=== PATIENT | female | born 1985 | race Caucasian/White ===

== ENCOUNTER 2017-02-04 17:01 | Emergency (ER) ==
[2017-02-04 17:01] VITALS: BMI 28.3
[2017-02-04 17:07] VITALS: BP 130/87; TEMP 97.3
--- NOTE | 2017-02-04 18:03 | ED.PDOC ---
General ED Provider: Dr. DOMINICK CAMPBELL Chief Complaint: Vaginal Discharge/Swelling Stated Complaint: vaginal discharge Time Seen by Physician: 17:00 (seen with LIBBYat all times) Mode of Arrival: Walk-In Information Source: Patient Referred to ED by: Other (pt not interested in HIV OR RPR TESTING SHE WOULD LIKE TO FOLLOW UP WITH HEALTH DEPT) Nursing and Triage Documentation Reviewed and Agree: Yes Complaint Exam - Complaint/Exam Patient Complains of: Reports: Vaginal discharge, Dysuria Onset/Duration: 1 WEEK Symptoms Are: Still present Timing: Intermittent Initial Severity: Mild Current Severity: None Location of Pain: Reports: None Aggravating: Reports: [place] Alleviating: Reports: None Associated Signs and Symptoms: Reports: Vaginal discharge Ectopic Risk Factors: Reports: None Ovarian Torsion Risk Factors: Reports: None Surgical Obstruction Risk Factors: Reports: None RH Status: Unknown Related Surgical History: Reports: None Abdominal Findings: Present: None Differential Diagnoses: UTI Review of Systems - Review Of Systems Constitutional: Reports: No symptoms Eyes: Reports: No symptoms Ears, Nose, Mouth, Throat: Reports: No symptoms Respiratory: Reports: No symptoms Cardiac: Reports: No symptoms GI: Reports: No symptoms : Reports: No symptoms Musculoskeletal: Reports: No symptoms Skin: Reports: No symptoms Neurological: Reports: No symptoms Endocrine: Reports: No symptoms Hematologic/Lymphatic: Reports: No symptoms All Other Systems: Reviewed and Negative Past Medical History - Past Medical History Previously Healthy: Yes Endocrine: Reports: None Cardiovascular: Reports: None Respiratory: Reports: None Hematological: Reports: None Gastrointestinal: Reports: None Genitourinary: Reports: None Neuro/Psych: Reports: None Musculoskeletal: Reports: None Cancer: Reports: None Last Menstrual Period: 2-3 weeks ago - Surgical History General Surgical History: Reports: Unknown - Family History Family History: Reports: Unknown - Social History Smoking Status: Current every day smoker Hx Substance Use: No Alcohol Screening: Heavy Physical Exam - Physical Exam Appearance: Well-appearing, No pain distress, Well-nourished Eyes: FILEMON, EOMI, Conjunctiva clear ENT: Ears normal, Nose normal, Oropharynx normal Respiratory: Airway patent, Breath sounds clear, Breath sounds equal, Respirations nonlabored Cardiovascular: RRR, Pulses normal, No rub, No murmur GI/: Soft, Nontender, No masses, Bowel sounds normal, No Organomegaly Musculoskeletal: Normal strength, ROM intact, No edema, No calf tenderness Skin: Warm, Dry, Normal color Neurological: Sensation intact, Motor intact, Reflexes intact, Cranial nerves intact, Alert, Oriented Psychiatric: Affect appropriate, Mood appropriate Critical Care Note - Critical Care Note Total Time (mins): 0 Course - Course Vital Signs: Temp Pulse Resp BP Pulse Ox 02/04/17 17:03 97.3 F L 94 H 20 130/87 98 Departure - Departure Time of Disposition: 18:03 (REFUSED HIVE AND RPR ) Disposition: HOME SELF-CARE Discharge Problem: Vaginal discharge, Vaginal irritation Instructions: Chlamydia (ED), Sexually Transmitted Diseases (ED), Condom Use ( ED), Safe Sex (ED), Trichomoniasis (ED) Condition: Good Pt referred to PMD for follow-up: Yes Additional Instructions: Please call your Family Physician as soon as possible to schedule a follow-up appointment. Allergies/Adverse Reactions: Allergies No Known Allergies Allergy (Verified 02/04/17 17:05) Home Medications: Ambulatory Orders 1 [No Reported Medications] 06/08/15
[2017-02-04] MEDS ORDERED: ROCEPHIN IM STA (18:04)
[2017-02-04] MEDS ORDERED: LIDOCAINE HCL 1% SDV SUBCUT STA (18:04)
[2017-02-04] MEDS ORDERED: ZITHROMAX PO STA (18:05)
== END 2017-02-04 18:36 | disposition home or self-care (01) ==
LOC: ED 17:01
DX: N89.8 Other specified noninflammatory disorders of vagina (principal); F17.210 Nicotine dependence, cigarettes, uncomplicated
CPT/HCPCS: 96372; 99282

== ENCOUNTER 2017-02-08 11:44 | Emergency (ER) ==
[2017-02-08 11:44] VITALS: BMI 28.3
[2017-02-08 12:06] VITALS: BP 147/93; TEMP 98.3
[2017-02-08 15:55] LABS: URINE PREGNANCY INTERNAL QC INTERNAL QC VALID
--- NOTE | 2017-02-08 16:26 | CT ---
EXAM: CT of the maxillofacial region/sinuses without contrast History: Facial trauma. Comparison: CT face 42,016 Technique: Multiplanar CT images through the maxillofacial region were obtained without the administ ration of IV contrast Findings: Mastoid air cells are clear. Orbits are intact. The visualized intracranial contents demonstrate no acute findings. Surrounding soft tissues demonstrate no acute abnormality. Moderate mucosal thickening of the bilateral maxillar y sinuses and there is opacification of the left frontal sinus. Mild mucosal thickening of the ethmo id air cells. Hypertrophy of the right nasal turbinates. No acute fracture or dislocation. Impression: 1. No acute osseous abnormality. 2. Paranasal sinusitis
--- NOTE | 2017-02-08 16:43 | ED.PDOC ---
General ED Provider: Dr. DOMINICK CAMPBELL Chief Complaint: Nose Injury Stated Complaint: nasal injury Time Seen by Physician: 12:00 (fall 3 days ago seen with nursing staff) Mode of Arrival: Walk-In Information Source: Patient Exam Limitations: No limitations Nursing and Triage Documentation Reviewed and Agree: Yes Trauma/Injury Complaint Exam - Facial Injury Complaint/Exam Location of Pain: Reports: Nose Mechanism of Injury: Reports: Trauma Onset/Duration: 3 days Symptoms Are: Still present Onset of Pain: Reports: Hours Initial Severity: Moderate Current Severity: Moderate Location: Reports: Discrete Character: Reports: Aching Alleviating: Reports: Rest Aggravating: Reports: Movement Associated Signs and Symptoms: Reports: Swelling, Redness. Denies: Bruising, Numbness, Tingling, Fever, Polymyalgia, Weight loss, Visual defects, Tinnitus, Headache, Loss of consciousness Related Surgical History: Reports: None Facial Findings: Present: Laceration (bridge of the nose ) Review of Systems - Review Of Systems Constitutional: Reports: No symptoms Eyes: Reports: No symptoms Ears, Nose, Mouth, Throat: Reports: Nose pain Respiratory: Reports: No symptoms Cardiac: Reports: No symptoms GI: Reports: No symptoms : Reports: No symptoms Musculoskeletal: Reports: No symptoms Skin: Reports: No symptoms Neurological: Reports: No symptoms Endocrine: Reports: No symptoms Hematologic/Lymphatic: Reports: No symptoms All Other Systems: Reviewed and Negative Past Medical History - Past Medical History Previously Healthy: Yes Endocrine: Reports: None Cardiovascular: Reports: None Respiratory: Reports: None Hematological: Reports: None Gastrointestinal: Reports: None Genitourinary: Reports: None Neuro/Psych: Reports: None Musculoskeletal: Reports: None Cancer: Reports: None Last Menstrual Period: 3 weeks ago - Surgical History General Surgical History: Reports: Unknown - Family History Family History: Reports: Unknown - Social History Smoking Status: Current every day smoker Hx Substance Use: No Alcohol Screening: Occasionally Physical Exam - Physical Exam Appearance: Well-appearing, No pain distress, Well-nourished Eyes: FILEMON, EOMI, Conjunctiva clear ENT: Ears normal, Nose normal, Oropharynx normal Respiratory: Airway patent, Breath sounds clear, Breath sounds equal, Respirations nonlabored Cardiovascular: RRR, Pulses normal, No rub, No murmur GI/: Soft, Nontender, No masses, Bowel sounds normal, No Organomegaly Musculoskeletal: Normal strength, ROM intact, No edema, No calf tenderness Skin: Warm, Dry (abrasion bridge of the nose ), Normal color Neurological: Sensation intact, Motor intact, Reflexes intact, Cranial nerves intact, Alert, Oriented Psychiatric: Affect appropriate, Mood appropriate Critical Care Note - Critical Care Note Total Time (mins): 0 Course - Course Orders, Labs, Meds: Lab Review 02/08/17 15:37 Urine Test Negative Orders Category Date Time Status URINE Stat LAB 02/08/17 15:[address] MAXILLOFACIAL W/O CONTRAST Stat RADS 02/08/17 15:22 Completed Vital Signs: Temp Pulse Resp BP Pulse Ox 02/08/17 12:03 98.3 F 93 H 20 147/93 H 98 Departure - Departure Time of Disposition: 16:43 Disposition: HOME SELF-CARE Discharge Problem: Nasal contusion Qualifiers: Encounter type: initial encounter Qualified Code(s): S00.33XA - Contusion of nose, initial encounter Instructions: Abrasion (ED) Condition: Good Pt referred to PMD for follow-up: Yes Additional Instructions: Please call your Family Physician as soon as possible to schedule a follow-up appointment. Allergies/Adverse Reactions: Allergies No Known Allergies Allergy (Verified 02/08/17 12:06) Home Medications: Ambulatory Orders 1 [No Reported Medications] 06/08/15
== END 2017-02-08 16:50 | disposition home or self-care (01) ==
LOC: ED 11:44
DX: S00.33XA Contusion of nose, initial encounter (principal); W19.XXXA Unspecified fall, initial encounter; F17.210 Nicotine dependence, cigarettes, uncomplicated
CPT/HCPCS: 81025; 99283